=== PATIENT | female | born 1945 | race Caucasian/White ===

== ENCOUNTER → 2020-10-13 | Day surgery (SDC) | payer MEDICARE ==
[~2020-10-13] MED LIST: ANASTROZOLE1 M1 PO; CARAFATE1 GM PO; CARDIZEM CD180 MG PO; ELIQUIS5 MG PO; EMERGEN-C ELEC1 EACH PO; MOTRIN600 MG PO; MULTIVITAMINS1 EAC2 PO; NORCO 5-325 TA1 EACH PO; OS-CAL500 MG PO; PRINIVIL10 MG PO; PROTONIX 40MG T40 MG PO; VIT E PO; ZANTAC150 MG PO; ZOLOFT50 MG PO; ZYRTEC10 M3 PO
== END | disposition home or self-care (01) ==
LOC: FAS 08:31
DX: K31.9 Disease of stomach and duodenum, unspecified (principal); K25.9 Gastric ulcer, unspecified as acute or chronic, without hemorrhage or perforation; K44.9 Diaphragmatic hernia without obstruction or gangrene; I10 Essential (primary) hypertension; J30.9 Allergic rhinitis, unspecified; M19.90 Unspecified osteoarthritis, unspecified site; E05.00 Thyrotoxicosis with diffuse goiter without thyrotoxic crisis or storm; E78.00 Pure hypercholesterolemia, unspecified; E78.5 Hyperlipidemia, unspecified; E05.90 Thyrotoxicosis, unspecified without thyrotoxic crisis or storm; M81.0 Age-related osteoporosis without current pathological fracture; I48.91 Unspecified atrial fibrillation; F32.9 Major depressive disorder, single episode, unspecified; Z79.01 Long term (current) use of anticoagulants; Z79.899 Other long term (current) drug therapy; Z85.3 Personal history of malignant neoplasm of breast; Z86.010 Personal history of colon polyps; Z88.5 Allergy status to narcotic agent
CPT/HCPCS: 88305; J2704; J7120

== ENCOUNTER 2021-01-29 06:21 | Day surgery (SDC) | payer MEDICARE ==
[~2021-01-29] VITALS: Ht 152.4 cm; Wt 72.6 kg
[~2021-01-29 06:21] MED LIST changes: -NORCO 5-325 TA1 EACH PO
[2021-01-29 07:31] LABS: BUN/CREAT RATIO (CALC) 17.8 RATIO; CREATININE 0.73 mg/dL (0.51-0.95); POTASSIUM 3.8 mmol/L (3.5-5.1)
[2021-01-30 06:06] LABS: BASOPHIL 0.2 % (0-2); EOSINOPHIL 0.4 % (0-7); HGB 11.3 g/dl (12.5-16.0); LYMPHOCYTE 14.4 % (15-48); MCH 29.6 pg (25.0-31.0); MCHC 32.3 g/dL (32.0-36.0); MCV 91.6 fL (78.0-100.0); MONOCYTE 11.7 % (0-12); MPV 9.6 fL (6.0-9.5); NRBC 0; PLT 240 K/uL (150-400); RBC 3.82 M/uL (4.20-5.40); WBC 9.7 K/uL (4.0-10.5)
[2021-01-30 06:16] LABS: BUN/CREAT RATIO (CALC) 13.8 RATIO; CREATININE 0.65 mg/dL (0.51-0.95); POTASSIUM 3.9 mmol/L (3.5-5.1)
[2021-01-30] MEDS ORDERED: NORCO 5-325 TA1 EACH PO (11:36)
--- NOTE | 2021-01-30 16:26 | NUR ---
DISCUSSED DISCHARGE INSTRUCTIONS WITH PATIENT. IV REMOVED. PATIENT IN STABLE CONDITION. D/C'D HOME
== END 2021-01-30 16:00 | disposition home or self-care (01) ==
LOC: FMS 06:21 → FAS 06:21 → FOR 07:30 → FMS 12:45 → FAS 01-30 16:00
PROVIDERS: Anesthesiology; Internal Medicine
DX: K44.9 Diaphragmatic hernia without obstruction or gangrene (principal); I48.0 Paroxysmal atrial fibrillation; K25.9 Gastric ulcer, unspecified as acute or chronic, without hemorrhage or perforation; K21.9 Gastro-esophageal reflux disease without esophagitis; D50.9 Iron deficiency anemia, unspecified; I10 Essential (primary) hypertension; E03.9 Hypothyroidism, unspecified; E78.00 Pure hypercholesterolemia, unspecified; Z88.5 Allergy status to narcotic agent; Z79.01 Long term (current) use of anticoagulants; Z85.3 Personal history of malignant neoplasm of breast
CPT/HCPCS: 36415; 80048; 85025; 93005; J0690; J1100; J1170; J1644; J1885; J2250; J2710; J3010; J7120

== ENCOUNTER → 2021-10-01 | Day surgery (SDC) | payer MEDICARE ==
[~2021-10-01] VITALS: Ht 152.4 cm; Wt 72.6 kg
[~2021-10-01] MED LIST changes: +BENTYL10 MG PO; +NORCO 5-325 TA1 EACH PO; +WELLBUTRIN XL150 MG PO
== END | disposition home or self-care (01) ==
LOC: FAS 06:44
DX: K21.00 Gastro-esophageal reflux disease with esophagitis, without bleeding (principal); K29.50 Unspecified chronic gastritis without bleeding; K44.9 Diaphragmatic hernia without obstruction or gangrene; N81.6 Rectocele; K56.41 Fecal impaction; F41.9 Anxiety disorder, unspecified; F32.A Depression, unspecified; I10 Essential (primary) hypertension; E05.00 Thyrotoxicosis with diffuse goiter without thyrotoxic crisis or storm; K22.2 Esophageal obstruction; D50.9 Iron deficiency anemia, unspecified; Z79.01 Long term (current) use of anticoagulants; Z88.5 Allergy status to narcotic agent
CPT/HCPCS: J2250; J2704; J7120